=== PATIENT | female | born 1945 | race Caucasian/White ===

== ENCOUNTER 2021-04-30 13:24 | Emergency (ER) | payer MEDICARE, BC, SELFPAY ==
[2021-04-30 13:41] VITALS: BP 161/76; PULSE 70; RESP 17; TEMP 36.9; O2SAT 93; BMI 44.2
--- NOTE | 2021-04-30 18:10 | ED.BACK ---
HPI - Back Pain/Injury General Chief Complaint: Back Pain/Injury Stated Complaint: Excurciating Back Pain,Going into Rt Leg Time Seen by Provider: 04/30/21 18:10 Source: patient and family Mode of arrival: Wheelchair Limitations: no limitations History of Present Illness HPI Narrative: 75-year-old female nonsmoker presents with her in the chief complaint of a few days of severe right lumbar pain with radiation down her lateral leg to her knee. She states the pain is worse with motion and improves with rest. She states it is sharp and stabbing associated with some tingling. She denies any recent trauma, heavy lifting or other obvious cause. She denies any fever or chills. She denies the use of blood thinners or IV drugs. She denies loss of bowel or bladder control. She denies any lower extremity weakness or footdrop. MD Complaint: back pain and back injury Onset (ago): day(s) Duration: constant Similar Symptoms Previously: Yes Location: lumbar spine Severity: moderate Quality: sharp and stabbing Radiation: right leg Relieving factors: immobilization Exacerbating factors: movement and walking Associated symptoms: difficulty walking Related Data Home Medications Medication Instructions Recorded Confirmed chlorzoxazone 500 mg PO DAILY 04/30/21 04/30/21 fluoxetine 20 mg PO DAILY 04/30/21 04/30/21 trazodone 100 mg PO BEDTIME 04/30/21 04/30/21 Previous Rx's Medication Instructions Recorded cyclobenzaprine 10 mg PO TID PRN #14 tab 04/30/21 gabapentin 300 mg PO BEDTIME #14 cap 04/30/21 hydrocodone-acetaminophen 1 tab PO Q4-6H PRN #10 tab 04/30/21 ketorolac 10 mg PO Q6H PRN #14 tab 04/30/21 methylprednisolone [Medrol (Melvin)] See Rx Instructions .ROUTE 04/30/21 .COMPLEX #21 ea Allergies Allergy/AdvReac Type Severity Reaction Status Date / Time Penicillins Allergy Severe Anaphylaxis Verified 04/30/21 13:46 Review of Systems Constitutional Constitutional: Denies chills, Denies fatigue, Denies fever(s), Denies frequent falls, Denies lethargy and Denies weakness Eyes Eyes: Denies change in vision, Denies eye discharge, Denies irritation and Denies loss of vision ENT Ears, Nose, Mouth, and Throat: Denies change in voice, Denies dizziness, Denies neck pain, Denies sore throat and Denies throat swelling Cardiovascular Cardiovascular: Denies chest pain, Denies irregular heart rhythm, Denies lightheadedness, Denies palpitations, Denies dyspnea, Denies dyspnea on exertion and Denies orthopnea Respiratory Respiratory: Denies cough, Denies dyspnea, Denies dyspnea on exertion and Denies wheezing Gastrointestinal Gastrointestinal: Denies abdominal pain, Denies change in bowel habits, Denies diarrhea, Denies nausea and Denies vomiting Musculoskeletal Musculoskeletal: Reports abnormal gait, Reports back pain, Denies neck pain and Denies numbness Integumentary/Breasts Skin/Breast: Denies pruritus, Denies erythema, Denies rash and Denies wounds Neurologic Neurologic: Reports abnormal gait, Denies behavioral changes, Denies confusion, Denies dizziness, Denies frequent falls, Denies loss of vision, Denies numbness and Denies weakness Psychiatric Psychiatric: Denies anxiety, Denies behavioral changes, Denies confusion, Denies depression, Denies homicidal ideation and Denies suicidal ideation Endocrine Endocrine: Denies fatigue, Denies flushing and Denies palpitations Hematologic/Lymphatic Hematologic/Lymphatic: Denies easy bruising Allergic/Immunologic Allergic/Immunologic: Denies urticaria, Denies throat swelling and Denies wheezing Patient History Social History Smoking Status: Never smoker Smoking Status: Never smoker alcohol intake frequency: other Substance Use Type: does not use Exam Narrative Exam Narrative: GENERAL: [75] year old patient appears stated age. Well-developed patient, in mild distress. HEAD: Atraumatic. Normocephalic. EYES: Pupils equal round and reactive. Extraocular motions intact. No scleral icterus. No injection or drainage. ENT: Nose without bleeding, purulent drainage. Throat without erythema, tonsillar hypertrophy or exudate. Airway patent. NECK: Trachea midline. Non tender CARDIOVASCULAR: Regular rate and rhythm without murmurs, gallops, or rubs. RESPIRATORY: Clear to auscultation. Breath sounds equal bilaterally. No wheezes, rales, or rhonchi. GASTROINTESTINAL: Abdomen soft, non-tender, nondistended. EXTREMITIES: No edema or joint tenderness. BACK: black oxide coating equipment tender but free of any obvious external abnormalities. Patient exam notes decreased range of motion and muscle spasm, but no CVA tenderness, or vertebral point tenderness. There are no symptoms of cauda equina such as saddle anesthesia, and decreased reflexes, decreased sensation or strength. NEURO: AOx3. SKIN: No rash or erythema of visible areas Initial Vital Signs Initial Vital Signs: Vital Signs Temperature 98.5 F 04/30/21 13:41 Pulse Rate 70 04/30/21 13:41 Respiratory Rate 17 04/30/21 13:41 Blood Pressure 161/76 H 04/30/21 13:41 Pulse Oximetry 93 04/30/21 13:41 Course Orders Ordered: Discontinued Medications Gabapentin (Gabapentin 300 Mg Capsule) 300 mg PO NOW ONE Stop: 04/30/21 19:37 Last Admin: 04/30/21 19:42 Dose: 300 mg Documented by: JUAN DANIEL Prednisone (Prednisone 20 Mg Tablet) 40 mg PO NOW ONE Stop: 04/30/21 19:37 Last Admin: 04/30/21 19:42 Dose: 40 mg Documented by: JUAN DANIEL Vital Signs Vital signs: Vital Signs - 8 hr 04/30/21 13:41 Temperature 98.5 F Pulse Rate 70 Respiratory Rate 17 Blood Pressure 161/76 H Pulse Oximetry 93 MDM - Back Pain/Injury MDM Narrative Medical decision making narrative: Multiple etiologies for patient's symptoms considered including: [Sciatic of versus piriformis syndrome versus epidural abscess versus epidural hematoma versus other Multiple etiologies of back pain considered including; Epidural abscess, cauda equina, mass occupying lesion, and other considered] Patient's symptoms improved over duration of stay with above-stated therapies. Findings and discharge diagnosis discussed with patient/family followed by verbalization of understanding Return precautions discussed with patient/family whom verbalize understanding. Discharge Plan Departure Patient Disposition: Home Clinical Impression: Acute left lumbar radiculopathy Instructions: DI for Lumbar Radiculopathy Activity Restrictions/Additional Instructions: *You have been diagnosed with [acute lumbar pain with radiculopathy] *What to do: *Please continue to take your regular medications as directed. [ x] New medication prescriptions sent to your pharmacy: [ [facility]] [ ] New medication written as a paper prescription [ ] No new medications given *Please follow up with your primary care provider in 2-3 days, call for an appointment. Let them know you were seen in the Emergency Department and that we ask that you be seen in follow up. We will electronically transmit a record of today's note if your PCP is in our system *If you do not have a primary care provider please contact the [facility] Resource line at [phone]. They will ask some questions about your medical history and help get you set up with a doctor in the community. *Return to Emergency Department if you should have any new, worsening or concerning symptoms, such as [fever greater than 101 F, shaking chills, worsening pain, persistent vomiting or other bothersome symptoms] Prescriptions: New cyclobenzaprine 10 mg tablet 10 mg PO TID PRN (Reason: muscle spasm) Qty: 14 RF: 0 hydrocodone-acetaminophen 5-325 mg tablet 1 tab PO Q4-6H PRN (Reason: pain) Qty: 10 RF: 0 ketorolac 10 mg tablet 10 mg PO Q6H PRN (Reason: pain) Qty: 14 RF: 0 gabapentin 300 mg capsule 300 mg PO BEDTIME Qty: 14 RF: 0 methylprednisolone [Medrol (Melvin)] 4 mg tablets,dose pack See Rx Instructions .ROUTE .COMPLEX Qty: 21 RF: 0 No Action chlorzoxazone 500 mg tablet 500 mg PO DAILY RF: 0 trazodone 100 mg tablet 100 mg PO BEDTIME RF: 0 fluoxetine 20 mg capsule 20 mg PO DAILY RF: 0
--- NOTE | 2021-04-30 19:21 | PC.NURSE ---
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 She is in pain and wants to be given pain medication so that she can make it through her flights back home to [place].
[2021-04-30] MEDS: predniSONE 20 MG TABLET 40 MG PO (19:42)
[2021-04-30] MEDS: GABAPENTIN 300 MG CAPSULE PO (19:42)
== END 2021-04-30 19:58 | disposition home or self-care (01) ==
PROVIDERS: Emergency Provider Emergency Medicine
DX: M54.16 Radiculopathy, lumbar region (principal)
CPT/HCPCS: 99283